=== PATIENT | female | born 1995 | race Caucasian/White ===

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

== ENCOUNTER 2017-04-20 15:06 | Emergency (ER) | payer OTHER ==
[~2017-04-20] VITALS: Ht 167.6 cm; Wt 89.0 kg
[~2017-04-20 15:06] MED LIST changes: +IBUP-1542 PO
[2017-04-20 15:09] VITALS: Ht 167.6 cm; Wt 89.0 kg
[2017-04-20] MEDS ORDERED: KETOROLAC 30 MG INJ IV STA (16:31)
[2017-04-20] MEDS ORDERED: ONDANSETRON 4 MG INJ IV STA (16:31)
[2017-04-20] MEDS ORDERED: SODIUM CHLORIDE 0.9% 1L BAG IV* STA (16:31)
[2017-04-20] MEDS ORDERED: ACETAMINOPHEN 325 MG TAB PO STA (16:31)
[2017-04-20 17:16] LABS: ABNORMAL IP MESSAGE 1; BASOPHILS % 0.2 % (0.0-2.0); EOSINOPHILS % 0.1 % (0.0-7.0); HEMATOCRIT 43.6 % (37.0-47.0); LYMPHOCYTES # 0.4 10^3/ul (0.8-2.9); MEAN CORPUSCULAR HEMOGLOBIN 23.6 pg (29.0-33.0); MEAN CORPUSCULAR HGB CONC 32.1 g/dl (32.0-37.0); MEAN CORPUSCULAR VOLUME 73.4 fl (72.0-104.0); MEAN PLATELET VOLUME 10.9 fl (7.4-10.4); MONOCYTE # 0.8 10^3/ul (0.3-0.9); MONOCYTES % 8.1 % (0.0-13.0); NEUTROPHIL # 8.8 10^3/ul (1.6-7.5); NEUTROPHILS % 87.1 % (30.0-74.0); PLATELET COUNT 307 10^3/UL (140-415); RED BLOOD COUNT 5.94 10^6/ul (4.20-5.40); RED CELL DISTRIBUTION WIDTH 18.6 % (11.5-14.5); WHITE BLOOD COUNT 10.1 10^3/ul (4.8-10.8)
[2017-04-20 17:19] LABS: POSITIVE DIFF @See below
--- NOTE | 2017-04-20 17:19 | RADRPT ---
PROCEDURE: XR Chest. CLINICAL INDICATION: Sepsis. TECHNIQUE: Single frontal view. COMPARISON: None. FINDINGS: The lungs are clear. The heart size is normal. There is no pleural effusion. There is no pneumothorax. IMPRESSION: 1. Normal chest radiograph. RPTAT: QQ .Darwin Archibald MD, Date Time Electronically viewed and signed by .Darwin Archibald MD, on 04/20/2017 17:19 .R/
[2017-04-20 17:28] LABS: ADD UMIC YES; UR ASCORBIC ACID NEGATIVE (NEGATIVE); UR BILIRUBIN (Dip) NEGATIVE (NEGATIVE); UR BLOOD (Dip) NEGATIVE (NEGATIVE); UR CLARITY CLOUDY (CLEAR); UR COLOR AMBER (YELLOW); UR GLUCOSE (Dip) NEGATIVE (NEGATIVE); UR KETONES (Dip) TRACE mg/dL (NEGATIVE); UR LEUKOCYTE ESTERASE (Dip) 1+ Leu/ul (NEGATIVE); UR MUCUS MANY /HPF (NONE SEEN); UR NITRITE (Dip) NEGATIVE (NEGATIVE); UR RBC 4 /HPF (0-5); UR SPECIFIC GRAVITY (Dip) 1.025 (1.003-1.030); UR SQUAMOUS EPITHELIAL CELL MANY /HPF (FEW); UR TOTAL PROTEIN (Dip) 1+ mg/dl (NEGATIVE); UR UROBILINOGEN (Dip) 1+ mg/dL (NEGATIVE)
--- NOTE | 2017-04-20 17:29 | ERD ---
ER Documentation Chief Complaint Date/Time DATE: 04/20/17 TIME: 17:26 Chief Complaint flu like symptoms since last night HPI Patient is a 21-year-old female with mother who presents to the ED with cough, fever, congestion as 1 day. She also complains of sudden sharp epigastric abdominal pain with nonbloody nonbilious emesis and low back and leg pain 2 hours. She states that the abdominal pain came on when she was waiting in the examination room. However she has had her other symptoms of cough fever and leg pain for the last day. She denies recent travel, recent surgeries. She has had her gallbladder removed in 2011 and she had vaginal delivery 6 months ago. Denies chest pain or cough or shortness of breath. Denies headache or dizziness. Denies dysuria urgency. Had a bowel movement today diarrhea. She has had a decrease in appetite and has only had bit of 7-Up today. No other complaints. ROS All systems reviewed and are negative except as per history of present illness. Medications Home Meds Active Scripts Docusate Sodium* (Colace*) 100 Mg Capsule, 100 MG PO TID, #30 CAP Prov:FITZ MEYERS-C 04/20/17 Benzonatate* (Tessalon Perle*) 100 Mg Capsule, 100 MG PO TID for 7 Days, CAP Prov:FITZ MEYERS-C 04/20/17 Acetaminophen* (Tylophen*) 500 Mg Capsule, 1 CAP PO Q6H Y for PAIN AND OR ELEVATED TEMP, #20 CAP Prov:FITZ MEYERS-C 04/20/17 Cephalexin* (Keflex*) 500 Mg Capsule, 500 MG PO QID for 7 Days, CAP Prov:FITZ MEYERS PA-C 04/20/17 Ibuprofen* (Ibuprofen*) 600 Mg Tablet, 600 MG PO Q6, #30 TAB 0 Refills Prov:FAUSTO HOLLEY MD 10/17/16 Reported Medications Vit/Fe Fumarate/Fa* ( Vitamin Tablet*) 1 Tab Tablet, 1 TAB PO DAILY 08/21/13 Allergies Allergies: Coded Allergies: No Known Drug Allergy (Verified Allergy, Mild, 09/08/15) PMhx/Soc History of Surgery: Yes (GALLBLADDER STONE REMOVAL 2011) Anesthesia Reaction: No Hx Neurological Disorder: No Hx Respiratory Disorders: No Hx Cardiac Disorders: No Hx Psychiatric Problems: No Hx Miscellaneous Medical Probl: No Hx Alcohol Use: No Hx Substance Use: No Hx Tobacco Use: No FmHx Family History: No coronary disease, No diabetes, No other Physical Exam Vitals Vital Signs Date Time Temp Pulse Resp B/P Pulse Ox O2 Delivery O2 Flow Rate FiO2 04/20/17 19:21 98.8 103 18 109/55 99 Room Air 04/20/17 15:09 102.1 125 18 163/93 96 Physical Exam GENERAL: Well-developed, well-nourished female. Appears in distress, crying in the room HEAD: Normocephalic, atraumatic. EYES: Pupils are equally reactive bilaterally. EOMs grossly intact. No conjunctival erythema. ENT: Moist mucous membranes. No uvula deviation. No kissing tonsils. No exudates. NECK: Supple. No lymphadenopathy or thyromegaly. No meningismus. negative kernig. negative brudinski. LUNG: Clear to auscultation bilaterally. No rhonchi, wheezing, rales or coarse breath sounds. HEART: Regular rate and rhythm. No murmurs, rubs or gallops. ABDOMEN: No scars, ecchymosis or rashes noted. Soft and nondistended. Positive bowel sounds in all four quadrants. No rebound tenderness, no guarding. (-) McBurneys point tenderness. No CVA tenderness. tenderness in epigastric region. BACK: No midline tenderness. Extremities: Equal pulses bilaterally. No peripheral clubbing, cyanosis or edema. No unilateral leg swelling. NEUROLOGIC: Alert and oriented. Moving all four extremities. 5/5 strength in all extremities. Normal speech. Steady gait. SKIN: Normal color. Warm and dry. No rashes or lesions. Capillary refill < 2 seconds Result Diagram: 04/20/17 1705 04/20/17 1705 Results 24 hrs Laboratory Tests Test 04/20/17 17:05 White Blood Count 10.110^3/ul Red Blood Count 5.9410^6/ul Hemoglobin 14.0g/dl Hematocrit 43.6% Mean Corpuscular Volume 73.4fl Mean Corpuscular Hemoglobin 23.6pg Mean Corpuscular Hemoglobin Concent 32.1g/dl Red Cell Distribution Width 18.6% Platelet Count 64164^3/UL Mean Platelet Volume 10.9fl Neutrophils % 87.1% Lymphocytes % 4.0% Monocytes % 8.1% Eosinophils % 0.1% Basophils % 0.2% Nucleated Red Blood Cells % 0.0/100WBC Neutrophils # 8.810^3/ul Lymphocytes # 0.410^3/ul Monocytes # 0.810^3/ul Eosinophils # 0.010^3/ul Basophils # 0.010^3/ul Nucleated Red Blood Cells # 0.010^3/ul Prothrombin Time 12.7Sec Prothrombin Time Ratio 1.0 INR International Normalized Ratio 0.95 Activated Partial Thromboplast Time 33.5Sec Urine Color NANCY Urine Clarity CLOUDY Urine pH 5.0 Urine Specific [place] 1.025 Urine Ketones TRACEmg/dL Urine Nitrite NEGATIVEmg/dL Urine Bilirubin NEGATIVEmg/dL Urine Urobilinogen 1+mg/dL Urine Leukocyte Esterase 1+Shira/ul Urine Microscopic RBC 4/HPF Urine Microscopic WBC 11/HPF Urine Squamous Epithelial Cells MANY/HPF Urine Mucus MANY/HPF Urine Hemoglobin NEGATIVEmg/dL Urine Glucose NEGATIVEmg/dL Urine Total Protein 1+mg/dl Sodium Level 141mmol/L Potassium Level 3.6mmol/L Chloride Level 102mmol/L Carbon Dioxide Level 25mmol/L Anion Gap 18 Blood Urea Nitrogen 11mg/dl Creatinine 0.81mg/dl Glucose Level 99mg/dl Lactic Acid Level 1.4mmol/L Calcium Level 10.4mg/dl Total Bilirubin 0.2mg/dl Direct Bilirubin 0.00mg/dl Indirect Bilirubin 0.2mg/dl Aspartate Amino Transf (AST/SGOT) 23IU/L Alanine Aminotransferase (ALT/SGPT) 39IU/L Alkaline Phosphatase 113IU/L Troponin I < 0.012ng/ml Total Protein 9.8g/dl Albumin 5.4g/dl Globulin 4.40g/dl Albumin/Globulin Ratio 1.22 Lipase 41U/L Current Medications Medications (Trade) Dose Ordered Sig/Tariq Route PRN Reason Start Time Stop Time Status Last Admin Dose Admin Sodium Chloride (NS) 2,760 ml BOLUS OVER 2 HOURS STAT IV* 04/20/17 16:31 04/20/17 16:33 DC 04/20/17 17:22 Acetaminophen (Tylenol Tab) 650 mg ONCE STAT PO 04/20/17 16:31 04/20/17 16:33 DC 04/20/17 17:23 Ondansetron HCl (Zofran Inj) 4 mg ONCE STAT IV 04/20/17 16:31 04/20/17 16:33 DC 04/20/17 17:22 Ketorolac Tromethamine (Toradol) 30 mg ONCE STAT IV 04/20/17 16:31 04/20/17 16:33 DC 04/20/17 17:19 Procedures/MDM ER COURSE: I kept the patient and/or family informed of laboratory and diagnostic imaging results throughout the emergency room course. EKG, MONITORS, & DIAGNOSTIC IMAGING: [place] [address] Radiology Main Line: [phone] DIAGNOSTIC IMAGING REPORT Patient: ERMA SKAGGS : 1995 Age: 21 Sex: F MR #: [id number] DOS: 04/20/17 1631 Ordering MD: FITZ MEYERS PA-C Location: [facility] Room/Bed: PROCEDURE: CT abdomen and pelvis without IV contrast CLINICAL INDICATION: Abdominal pain, sepsis. TECHNIQUE: Axial images were obtained through the abdomen and pelvis without IV contrast. Coronal and sagittal reconstructions were obtained. Automated exposure control was utilized. DLP = 959.0 mGy-cm. CTDiol= 17.7 mGy. One or more of the following post reduction techniques were used: - Automated exposure control. - Adjustment of the mA and/or Kv according to patient's size. - Use of iterative reconstruction technique COMPARISON: February 12, 2014 FINDINGS: The visualized lower lungs are clear. Heart size is within normal limits. Cholecystectomy clips are seen in the gallbladder fossa. The liver, pancreas, spleen and adrenals have an unremarkable appearance. The kidneys demonstrate a normal appearance. No obstructive uropathy is observed. The bladder is filled with a minimal amount of urine. The uterus has an unremarkable appearance. A large amount of formed stool is seen in the splenic flexure and left colon. Scattered air and stool are noted in the remainder of the colon. The appendix is normal. No dilated loops of small bowel are observed. The stomach and duodenum are unremarkable. No intra-abdominal or pelvic free fluid or fluid collections are observed. No intra-abdominal or pelvic lymphadenopathy is observed. The arterial vasculature demonstrates a normal appearance. Osseous structures are intact and normal-appearing. Subcutaneous and muscular soft tissues surrounding the abdomen and pelvis are unremarkable. IMPRESSION: Limited evaluation for intra-abdominal inflammatory processes without IV contrast. If there is clinical concern for a intra-abdominal inflammatory process repeat exam with IV contrast is recommended. Large amount of formed stool in the splenic flexure and left colon, possibly indicating constipation. Status post cholecystectomy. RPTAT: AA .Obie Gonsales MD, Date Time Electronically viewed and signed by .Obie Gonsales MD, MD on 04/20/2017 18:45 .P/ CC: FITZ MEYERS PA-C [place] [address] Radiology Main Line: [phone] DIAGNOSTIC IMAGING REPORT Patient: ERMA SKAGGS : 1995 Age: 21 Sex: F MR #: [id number] DOS: 04/20/17 1631 Ordering MD: FITZ MEYERS PA-C Location: [facility] Room/Bed: PROCEDURE: XR Chest. CLINICAL INDICATION: Sepsis. TECHNIQUE: Single frontal view. COMPARISON: None. FINDINGS: The lungs are clear. The heart size is normal. There is no pleural effusion. There is no pneumothorax. IMPRESSION: 1. Normal chest radiograph. RPTAT: QQ .Darwin Archibald MD, Date Time Electronically viewed and signed by .Darwin Archibald MD, MD on 04/20/2017 17:19 .R/ CC: FITZ MEYERS PA-C MEDICATIONS: Tylenol, Toradol, fluids. Alerted well and had improvement in symptoms with no adverse reaction LAB INTERPRETATION: CBC showed no evidence of systemic infection or severe anemia. CMP showed no evidence of electrolyte abnormalities, severe acidosis, alkalosis, renal failure , or liver disease. Lipase showed no evidence of acute pancreatitis. UA shows leukocytes with no nitrites or hematuria urine test was negative. MEDICAL DECISION MAKING: This is a 21-year-old female who presents with complaints. Patient complains of abdominal pain, vomiting, cough congestion and body aches 1 day. Vital signs were reviewed. . Patient is not hypoxic. Patient came to the ED with a temperature of 102.1 and a pulse of 125. Patient was given Tylenol and Toradol and fluids. Patient had improvement in symptoms. CT scan was ordered which was unremarkable for acute abdomen. Patient shows signs of constipation. I reexamined patient and she had improvement in symptoms. Her temperature is down trending and her pulse is within normal limits. Low suspicion for ACS, AAA , perforated ulcer, bowel obstruction, cholecystitis, choledocholithiasis, cholangitis, pancreatitis, hepatic abscess, appendicitis, diverticulitis, gastroenteritis, hepatitis, peptic ulcer disease, HELLP syndrome. Low suspicion for pneumonia, PE, pneumothorax, ACS, epiglottitis, obstruction, TB, pertussis, meningitis, sepsis. DISCHARGE: At this time, patient is stable for discharge and outpatient management with no new complaints during the ER course. Patient was sent home with Keflex, Colace, Tylenol and Tessalon Perles copy of all laboratory studies and imaging studies. Patient will be discharged home with instructions to recheck for new or worsening symptoms such as fever, nausea, weakness, LOC and to follow up with primary care in the next 1-2 days. Patient was advised to return to the ER for any new or worsening symptoms. Plan was discussed and patient and/or family understands and agrees. Home instructions were given. Departure Diagnosis: Primary Impression: Cystitis Additional Impression: Upper respiratory infection URI type: unspecified URI Qualified Code: J06.9 - Upper respiratory tract infection, unspecified type Condition: Stable FITZ MEYERS PA-C Apr 20, 2017 17:29
[2017-04-20 17:32] LABS: INR 0.95; PROTIME 12.7 Sec (12.2-14.2)
[2017-04-20 17:33] LABS: PARTIAL THROMBOPLASTIN TIME 33.5 Sec (25.0-35.0)
[2017-04-20 17:35] LABS: ALANINE AMINOTRANSFERASE 39 IU/L (13-69); ALBUMIN 5.4 g/dl (3.3-4.9); ALBUMIN/GLOBULIN RATIO 1.22; ALKALINE PHOSPHATASE 113 IU/L (42-121); ANION GAP 18 (8-16); ASPARTATE AMINO TRANSFERASE 23 IU/L (15-46); BILIRUBIN,INDIRECT 0.2 mg/dl (0-1.1); BILIRUBIN,TOTAL 0.2 mg/dl (0.2-1.3); BLOOD UREA NITROGEN 11 mg/dl (7-20); CALCIUM 10.4 mg/dl (8.4-10.2); CARBON DIOXIDE 25 mmol/L (21-31); CHLORIDE 102 mmol/L (97-110); CREATININE 0.81 mg/dl (0.44-1.00); GLUCOSE 99 mg/dl (70-220); POTASSIUM 3.6 mmol/L (3.5-5.1); SODIUM 141 mmol/L (135-144); TOTAL PROTEIN 9.8 g/dl (6.1-8.1)
[2017-04-20 17:48] LABS: TROPONIN-I < 0.012 ng/ml (0.00-0.12)
--- NOTE | 2017-04-20 18:46 | RADRPT ---
PROCEDURE: CT abdomen and pelvis without IV contrast CLINICAL INDICATION: Abdominal pain, sepsis. TECHNIQUE: Axial images were obtained through the abdomen and pelvis without IV contrast. Coronal and sagittal reconstructions were obtained. Automated exposure control was utilized. DLP = 959.0 m Gy-cm. CTDiol= 17.7 mGy. One or more of the following post reduction techniques were used: - Automated exposure control. - Adjustment of the mA and/or Kv according to patient's size. - Use of iterative reconstruction technique COMPARISON: February 12, 2014 FINDINGS: The visualized lower lungs are clear. Heart size is within normal limits. Cholecystectomy clips are seen in the gallbladder fossa. The liver, pancreas, spleen and adrenals terrell ve an unremarkable appearance. The kidneys demonstrate a normal appearance. No obstructive uropathy is observed. The bladder is fi lled with a minimal amount of urine. The uterus has an unremarkable appearance. A large amount of formed stool is seen in the splenic flexure and left colon. Scattered air and stoo l are noted in the remainder of the colon. The appendix is normal. No dilated loops of small bowel are observed. The stomach and duodenum are unremarkable. No intra-abdominal or pelvic free fluid or fluid collections are observed. No intra-abdominal or pe lvic lymphadenopathy is observed. The arterial vasculature demonstrates a normal appearance. Osseous structures are intact and normal-appearing. Subcutaneous and muscular soft tissues surround ing the abdomen and pelvis are unremarkable. IMPRESSION: Limited evaluation for intra-abdominal inflammatory processes without IV contrast. If there is clin ical concern for a intra-abdominal inflammatory process repeat exam with IV contrast is recommended. Large amount of formed stool in the splenic flexure and left colon, possibly indicating constipation . Status post cholecystectomy. RPTAT: AA .Obie Gonsales MD, MD Date Time Electronically viewed and signed by .Obie Gonsales MD, MD on 04/20/2017 18:45 .P/
[2017-04-20] MEDS ORDERED: ACET500C5 PO (19:20)
[2017-04-20] MEDS ORDERED: BENZ100C70 PO (19:20)
[2017-04-20] MEDS ORDERED: CEPH-443 PO (19:20)
[2017-04-20 19:21] VITALS: BP 109/55; PULSE 103; RESP 18; TEMP 98.8
[2017-04-20] MEDS ORDERED: DOCU-144 PO (19:25)
== END 2017-04-20 19:30 | disposition home or self-care (01) ==
LOC: FTE 15:06
DX: N30.90 Cystitis, unspecified without hematuria (principal); J06.9 Acute upper respiratory infection, unspecified; R10.9 Unspecified abdominal pain
CPT/HCPCS: 36415; 71010; 74176; 80053; 81001; 83605; 83690; 84484; 85025; 85610; 85730; 87040; 87086; 87400; 93005; 96374; 96375; J1885; J2405; J7030; Z7502; Z7610

== ENCOUNTER 2017-10-04 05:47 | Emergency (ER) | END 2017-10-04 08:15 | disposition home or self-care (01) ==

== ENCOUNTER 2018-03-21 08:43 | Emergency (ER) | END 2018-03-21 10:49 | disposition home or self-care (01) ==

== ENCOUNTER 2018-08-15 20:09 | Emergency (ER) | payer OTHER ==
[~2018-08-15] VITALS: Ht 167.6 cm; Wt 74.9 kg
[~2018-08-15 20:09] MED LIST changes: +ACET500C5 PO; +BENZ-6 PO; +CALC600T5 PO; +CEPH-443 PO; +DOCU-144 PO; +FAMO-96 PO; +FERR325C PO; +HYDR-4011 PO; +PREN1TAB79 PO; +RANI150T35 PO
[2018-08-15 20:45] VITALS: BP 161/91; PULSE 99; RESP 18; Ht 167.6 cm; Wt 74.9 kg
[2018-08-15] MEDS ORDERED: KETOROLAC 60 MG INJ IM STA (23:52)
[2018-08-15] MEDS ORDERED: DICL100G37 TOP (23:54)
[2018-08-15] MEDS ORDERED: CYCL10TA7 PO (23:54)
[2018-08-15] MEDS ORDERED: NAPR-985 PO (23:54)
[2018-08-16] MEDS ORDERED: DIAZEPAM 5 MG TAB PO ONE
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
== END 2018-08-16 00:44 | disposition home or self-care (01) ==
LOC: FTE 20:09
DX: M54.5 Low back pain (principal)
CPT/HCPCS: 81025; 96372; J1885; Z7502; Z7610